=== PATIENT | male | born 1960 | race Caucasian/White ===

== ENCOUNTER 2019-04-05 06:32 | Observation (INO) | payer BC ==
[2019-04-04 16:01] LABS: BASOPHILS % (AUTO) 0.7 % (0-1); EOSINOPHILS # (AUTO) 0.2 X10'3 (0-0.9); EOSINOPHILS % (AUTO) 3.2 % (0-6); LYMPHOCYTES # (AUTO) 1.3 X10'3 (1.1-4.8); LYMPHOCYTES % (AUTO) 16.9 % (21-51); MEAN CORPUSCULAR HEMOGLOBIN 34.2 PG (27.0-31.0); MEAN CORPUSCULAR HGB CONC 34.4 g/dL (33.0-36.5); MEAN CORPUSCULAR VOLUME 99.5 FL (78-98); MONOCYTES # (AUTO) 0.6 X10'3 (0-0.9); MONOCYTES % (AUTO) 8.3 % (2-12); NEUTROPHILS # (AUTO) 5.3 X10'3 (1.8-7.7); NEUTROPHILS % (AUTO) 70.9 % (42-75); PRE OP HEMATOCRIT 44.7 % (42.0-52.0); PRE OP HEMOGLOBIN 15.4 g/dL (14.0-17.9); PRE OP PLATELET COUNT 749 X10'3 (140-440); RED CELL DISTRIBUTION WIDTH 18.3 % (11.5-14.5)
[2019-04-04 16:13] LABS: ALBUMIN/GLOBULIN RATIO 1.3 (1.1-1.5); ALKALINE PHOSPHATASE 114 IU/L (46-116); BLOOD UREA NITROGEN 10 MG/DL (7-18); BUN/CREATININE RATIO 14.1 (5.4-32.0); CHLORIDE 99 MMOL/L (99-107); CREATININE 0.71 MG/DL (0.60-1.10); PRE OP ALT 37 U/L (30-65); PRE OP ANION GAP 5 (8-16); PRE OP AST 21 U/L (10-37); PRE OP BILIRUB, TOTAL 0.3 MG/DL (0.0-1.0); PRE OP GLUCOSE 87 MG/DL (70-104); PRE OP POTASSIUM 4.4 MMOL/L (3.4-5.1); PRE OP SODIUM 134 MMOL/L (135-145); TOTAL CARBON DIOXIDE 29.7 MMOL/L (24-32); TOTAL PROTEIN 7.1 G/DL (6.4-8.2); eGFR > 90 ML/MIN
[2019-04-04 18:39] LABS: PLATELET ESTIMATE INCREASED
[2019-04-04 18:40] LABS: ANISOCYTOSIS 2+; LARGE PLATELETS FEW; POLYCHROMASIA FEW
[~2019-04-05] VITALS: Ht 195.6 cm; Wt 112.5 kg
[2019-04-05] VITALS (20 sets, daily range): BP systolic 112–163; BP diastolic 64–98
[~2019-04-05 06:32] MED LIST: ALPR0.252 PO; ASPI-845 PO; BACL10TA PO; BUDE10.2 INH; BUPIVAcaine/PF 2.5 mg/ml (0.25%) 30ml vial ONE; BUSP10TA11 PO; CLON-527 PO; DIPH25CA83 PO; FENT1PAT7 TOP; GABA-532 PO; GUAI400T91 PO; HYDR-4353 PO; HYDR500C18 PO; LOPE2CAP14 PO; METO25TA6 PO; MULT-955 PO; NAPR220T67 PO; NICO1PAT36 TOP; OMEP20CA11 PO; ROPIVAcaine 0.5% (5mg/ml) 30ml vial ONE; TRAM50TA2 PO; TRIA1CAP6 PO; ketorolac trometh. 30mg/ml inj. ONE
[2019-04-05] MEDS ORDERED: ipratropium/albuterol 3ml nebule NEB ONE (07:15)
[2019-04-05] MEDS ORDERED: ceFAZolin inj. 2,000 MG in dextrose 5%-water 50ml 50 ML IV ONE (07:30)
[2019-04-05] MEDS ORDERED: ringers solution, lacted 1,000 ML IV SCH ×2 (07:30→10:20)
[2019-04-05] MEDS ORDERED: famotidine 20mg tablet PO ONE (07:30)
[2019-04-05] MEDS ORDERED: vancomycin inj 1,500 MG in normal saline 300ml IV soln IV ONE (07:30)
[2019-04-05] MEDS ORDERED: tranexamic acid inj. 1,110 MG in normal saline 100ml IV soln 100 ML IV ONE (08:30)
[2019-04-05] MEDS ORDERED: tranexamic acid inj. 1,100 MG in normal saline 100ml IV soln 100 ML IV ONE (08:35)
[2019-04-05] MEDS ORDERED: neostigmine methylsulfate 1 MG/ML 10ml vial ONE (09:00)
[2019-04-05] MEDS ORDERED: glycopyrrolate 0.2mg/ml inj ONE (09:00)
[2019-04-05] MEDS ORDERED: sevoflurane 250ml liquid IH ONE (09:00)
[2019-04-05] MEDS ORDERED: dexamethasone sod phosphate 10mg/ml inj ONE (09:00)
[2019-04-05] MEDS ORDERED: LIDOcaine 1%/PF 5ML 10 MG/ML VIAL ONE (09:00)
[2019-04-05] MEDS ORDERED: ondansetron/PF 4mg/2ml inj ONE (09:00)
[2019-04-05] MEDS ORDERED: fentaNYL /PF 50mcg/ml 5ml ampule ONE (09:02)
[2019-04-05] MEDS ORDERED: midazolam 2 mg/2 ml injection ONE (09:02)
--- NOTE | 2019-04-05 09:05 | NUR ---
I have reviewed and agree with all medications administered and interventions performed by [facility] Student Brandon Cardenas Addendum: 04/05/19 at 0906 by Elizabeth Celis RT Amended: Links added.
[2019-04-05] MEDS ORDERED: rocuronium 10mg/ml inj IV ONE (09:57)
[2019-04-05] MEDS ORDERED: propofol inj 40 ML IV ONE (09:57)
[2019-04-05] MEDS ORDERED: ePHEDrine 50MG/ML INJ. ONE (09:57)
[2019-04-05] MEDS ORDERED: phenylephrine 10mg/ml inj. ONE (09:57)
[2019-04-05] MEDS ORDERED: fentaNYL/PF 50MCG/1 ML 2ML syringe ONE (09:58)
[2019-04-05] MEDS ORDERED: ondansetron/PF 4mg/2ml inj IV PRN ×2 (10:20→11:15)
[2019-04-05] MEDS ORDERED: proCHLORperazine 10 MG/2 ml inj IV PRN (10:20)
[2019-04-05] MEDS ORDERED: meperidine/PF 25mg/ml syringe IV PRN ×2 (10:20)
[2019-04-05] MEDS ORDERED: morphine 4 MG/ML inj SYRINge IV PRN ×2 (10:20)
[2019-04-05] MEDS ORDERED: acetaminophen 1,000mg/100ml IV 100 ML IV ONE (10:50)
[2019-04-05] MEDS ORDERED: meperidine/PF 50mg/ml syringe ONE (10:50)
--- NOTE | 2019-04-05 11:11 | NUR ---
Received from OR via ORTHO BED, accompanied by Anesthesiologist DR MANE and report given by Anesthesiolgist. PT PLACED ON O2 AND MONITOR, S/P ORIF LEFT SHOULDER, PT AROUSES EASILY, LEFT SHOULDER DRESSING CDI COVERED WITH SHOULDER WRAP AND ICE PACK IN PLACE, GOOD RADIAL PULSES BILAT, PT HAS SLING TO LEFT ARM, DENIES NAUSEA, ANESTHESIA GAVE 25 MG DEMEROL, RATING VARGAS AT APPROX 8/10 WILL CONT TO ASSESS.
[2019-04-05] MEDS ORDERED: potassium cl 20mEq in 1/2 NS 1,000 ML IV SCH (11:12)
[2019-04-05] MEDS ORDERED: HYDROmorphone 1 mg/ml syringe IV PRN (11:15)
[2019-04-05] MEDS ORDERED: acetaminophen 325mg tablet PO PRN (11:15)
[2019-04-05] MEDS ORDERED: oxyCODONE IR 5mg (immed. release) tablet PO PRN ×2 (11:15)
[2019-04-05] MEDS ORDERED: diphenhydrAMINE 25mg capsule PO PRN ×2 (11:15)
[2019-04-05] MEDS ORDERED: HYDROmorphone inj. 0.5 MG/0.5 ML DISP.SYRIN IV PRN (11:15)
[2019-04-05] MEDS ORDERED: magnesium hydroxide 30ml (MOM) UD suspension PO PRN (11:15)
[2019-04-05] MEDS ORDERED: bisacodyl 10mg suppository rectal RC PRN (11:15)
[2019-04-05] MEDS: meperidine/PF 25mg/ml syringe IV PRN ×4 (11:34→12:52)
[2019-04-05] MEDS ORDERED: loperamide 2mg capsule PO PRN (11:50)
[2019-04-05] MEDS ORDERED: clonazePAM 1mg tablet PO PRN (11:50)
[2019-04-05] MEDS ORDERED: ALPRAZolam 0.25mg tablet PO PRN (11:50)
[2019-04-05] MEDS ORDERED: fentaNYL 25MCG/hour patch.TD72 TD SCH (12:30)
[2019-04-05] MEDS ORDERED: busPIRone 5mg tablet PO SCH (13:00)
[2019-04-05] MEDS ORDERED: traMADol 50MG tablet PO SCH (13:00)
--- NOTE | 2019-04-05 13:17 | NUR ---
Pt received on the [facility] floor Room 4021B. Report received from Fabienne ALEJANDRA Addendum: 04/05/19 at 1318 by Tres LAZAR at 130
[2019-04-05] MEDS ORDERED: acetaminophen 325mg tablet PO SCH (14:00)
[2019-04-05] MEDS ORDERED: NORMAL SALINE IV ONE (14:44)
[2019-04-05] MEDS ORDERED: TRANEXAMIC ACID IV ONE (14:44)
[2019-04-05] MEDS ORDERED: albuterol 2.5 MG/3 ML nebule NEB SCH (15:00)
--- NOTE | 2019-04-05 15:34 | NUR ---
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 Julita [id number]
[2019-04-05] MEDS ORDERED: gabapentin 300mg capsule PO SCH (16:00)
[2019-04-05] MEDS ORDERED: ceFAZolin 1GM/D5W- ADD-VANTAGE 50 ML IV SCH (16:00)
--- NOTE | 2019-04-05 17:25 | NUR ---
Received from OR via ORTHO BED, accompanied by Anesthesiologist DR BOUCHER and report given by Anesthesiolgist. PT PLACED ON O2 AND MONITOR, S/P RIGHT SHOULDER REPAIR, GENERAL ANESTH, AWAKE ALERT, PT HAS RIGHT SHOULDER DRESSING 4X4 COVERED WITH TEGADERM, CDI, GOOD RADIAL PULSES BILAT, DENIES ANY PAIN OR NAUSEA AT THIS TIME.
--- NOTE | 2019-04-05 18:17 | NUR ---
Student documentation: I have reviewed and agree with all interventions, assessments performed and documented by Wilver LR. Student Medication Administration: For this medication-pass time frame, all medication were reviewed, dispensed, administered and documented per hospital policy by Wilver LR. Report to Madhavi ALEJANDRA
--- NOTE | 2019-04-05 18:17 | NUR ---
Doctor Yanni in to see patient and discharged him.
--- NOTE | 2019-04-05 18:34 | NUR ---
Report to Cami ALEJANDRA
--- NOTE | 2019-04-05 19:08 | NUR ---
discharged to home accompanied by s.o. via wc// iv removed intact when discontinued // med for pain prior to departure verbalized discjharge instructions
--- NOTE | 2019-04-05 19:16 | NUR ---
PLEASE DISREGUARD [id number] ENTRY FROM PACU WRONG PT
[2019-04-05] MEDS ORDERED: baclofen 10mg tablet PO SCH (20:00)
[2019-04-05] MEDS ORDERED: metoprolol tartrate 25mg tablet PO SCH (20:00)
[2019-04-05] MEDS ORDERED: diphenhydrAMINE 25mg capsule PO SCH (20:00)
[2019-04-05] MEDS ORDERED: budesonide 0.5mg/2ml UD nebule IH SCH (20:00)
[2019-04-05] MEDS ORDERED: guaiFENesin ER 600mg tablet PO PRN (20:00)
[2019-04-05] MEDS ORDERED: vancomycin/NS 1 GM ADD-VANTAGE 250 ML IV SCH (20:00)
[2019-04-05] MEDS ORDERED: sennosides 8.6mg tablet PO SCH (21:00)
[2019-04-06] MEDS ORDERED: pantoprazole 40mg Tablet.DR PO SCH (07:30)
[2019-04-06] MEDS ORDERED: multivitamins, therapeutics tablet PO SCH (08:00)
[2019-04-06] MEDS ORDERED: triamterene/HCTZ 37.5/25mg tablet PO SCH (08:00)
[2019-04-06] MEDS ORDERED: aspirin 325mg tablet, delayed-release (Ecotrin) PO SCH (08:00)
[2019-04-06] MEDS ORDERED: aspirin 325mg tablet PO SCH (08:30)
[2019-04-07] MEDS ORDERED: acetaminophen 325mg tablet PO PRN (11:15)
== END 2019-04-05 19:10 | disposition home or self-care (01) ==
LOC: PAS 06:32 → ORTHO 4S 11:24
PROVIDERS: ADMIT Orthopaedic Surgery; ATTEND Orthopaedic Surgery
DX: S42.292A Other displaced fracture of upper end of left humerus, initial encounter for closed fracture (principal); X58.XXXA Exposure to other specified factors, initial encounter; Y93.89 Activity, other specified; Y92.89 Other specified places as the place of occurrence of the external cause; Y99.8 Other external cause status
CPT/HCPCS: 24516; 36415; 73020; 76000; 80053; 82948; 85025; 93005; 94640; 94760; 96365; 96366; 96367; 96368; 96375; 96376; C1713; G0378; J0131; J0690; J1100; J1170; J1885; J2175; J2250; J2370; J2405; J2704; J2710; J3010; J3370; J3490; J7060; J7120; A4565; A4618; A6449; A7000; J2795; J3480; J7626